=== PATIENT | female | born 1945 ===

== ENCOUNTER 2019-11-25 13:23 | Outpatient (REF) | payer MEDICARE, SELFPAY ==
[2019-11-27 20:31] LABS: SARS-CoV-2 RNA Undetected (Undetected); SARS-CoV-2 Specimen Source Nasopharynx
== END 2019-11-25 13:43 ==
LOC: NCHCN 13:23
PROVIDERS: Visit Provider Physician Assistant
DX: Z20.828 Contact with and (suspected) exposure to other viral communicable diseases (principal)
CPT/HCPCS: U0003

== ENCOUNTER 2020-02-18 08:05 | Outpatient (REF) | payer MEDICARE, SELFPAY ==
[2020-02-18 19:21] LABS: Anion Gap 3.4 mmol/L (3-11); BUN 21 mg/dL (7-18); CO2 31.6 mmol/L (21.0-32.0); CREATININE 1.16 mg/dL (0.55-1.02); Calcium 9.4 mg/dL (8.5-10.1); Calculated LDL 150 mg/dL (<100); Chloride 108 mmol/L (98-107); Cholesterol 251 mg/dL (<200); Estimated GFR 45.79 (mL/min/1.73m2); Glucose 91 mg/dL (74-106); HDL Cholesterol 84 mg/dL (40-60); Sodium 143 mmol/L (136-145); Triglyceride 87 mg/dL (<150)
== END 2020-02-18 08:25 ==
LOC: NCHCN 08:05
PROVIDERS: Visit Provider Nurse Practitioner Family
DX: E78.00 Pure hypercholesterolemia, unspecified (principal); I10 Essential (primary) hypertension; N28.9 Disorder of kidney and ureter, unspecified
CPT/HCPCS: 80048; 80061